=== PATIENT | male | born 1940 | race Caucasian/White ===

== ENCOUNTER → 2017-11-05 | Outpatient (CLI) | payer MEDICARE, BC ==
[~2017-11-05] MED LIST: ACETAMINOPHEN325 M1 PO; ALEVE220 M1 PO; ANCEF 1GM1 GM/50 M1 IV; ASPIR 8181 MG PO; ASPIRIN EC325 M1 PO; ASPIRIN325; ATENOLOL 50 MG50 M1 PO; ATENOLOL 50MG T50 M1 PO; BACTRIM DS TAB1 EACH PO; CEFAZOLIN2 GM/50 ML IV; CELEXA40 MG PO; CHLORTHALIDONE25 MG PO; CHLORTHALIDONE50 MG PO; COLACE100 MG PO; COUMADIN 5 MG TA5 M1 PO; HYDROCHLOROTHIA25 M2 PO; HYDROCODONE-AP1 EAC6 PO; IBUPROFEN200 M1 PO; IRON159 MG PO; IRON325; LISINOPRIL40 MG PO; LOVASTATIN 20 M20 MG PO; METAMUCIL PAC1 UDPK1 PO; MIRALAX255 GM PO; MOM PO; MULTIVITAMINS PO; NAFCILLIN 2 GM A2 G1 IV; NITROGLYCERIN0.4 MG SL; NORCO 5-325 TA1 EACH PO; NORVASC 5 MG TAB5 MG PO; NORVASC5 MG PO; OMEPRAZOLE 20 M20 M1 PO; OMEPRAZOLE 20 M20 MG PO; OXYCODONE HCL 55 MG PO; OXYCODONE HCL5 M1; OXYCONTIN10 M1 PO; OXYCONTIN40 MG PO; OXYIR5 MG PO; PERCOCET 5-3251 EACH PO; PRAVACHOL40 MG PO; PRAVASTATIN SOD40 MG PO; PRILOSEC 20 MG20 MG PO; VENLAFAXINE HC150 M1 PO; VITAMIN B12 PO; VITAMIN C PO; XARELTO10 M1; [UNRECOGNIZED DRUG - OTHER]
== END ==
LOC: M.ULTRA 08:57
DX: I65.23 Occlusion and stenosis of bilateral carotid arteries (principal); I50.32 Chronic diastolic (congestive) heart failure

== ENCOUNTER 2017-12-25 09:01 | Inpatient (IN) | payer MEDICARE, BC ==
[~2017-12-25] VITALS: Ht 177.8 cm; Wt 97.6 kg
[~2017-12-25 09:01] MED LIST changes: -NORCO 5-325 TA1 EACH PO
[2017-12-25 10:35] LABS: ABSOLUTE BASOPHILS 0.1 thou/uL (0.0-0.2); ABSOLUTE EOSINOPHILS 0.2 thou/uL (0.0-0.7); ABSOLUTE LYMPHOCYTES 2.6 thou/uL (0.8-5.3); ABSOLUTE MONOCYTES 0.8 thou/uL (0.0-1.2); ABSOLUTE NEUTROPHILS 6.1 thou/uL (1.6-8.1); BASOPHILS 0.6 %; EOSINOPHILS 2.5 %; HEMATOCRIT 41.9 % (42.0-52.0); HEMOGLOBIN 13.8 gm/dL (14.0-18.0); LYMPHOCYTES 26.5 %; MCH 30.2 pg (26.0-34.0); MCHC 32.9 g/dL (28.0-37.0); MCV 91.8 fL (80.0-100.0); MONOCYTES 8.5 %; NUCLEATED RBCS 0 /100WBC; PLATELET COUNT* 121 thou/uL (150-400); POLYS 61.9 %; RBC 4.56 mil/uL (4.50-6.00); WBC 9.8 thou/uL (4.0-11.0)
[2017-12-25 10:49] LABS: CALCIUM 9.4 mg/dL (8.5-10.1); CREATININE 1.5 mg/dL (0.6-1.3); POTASSIUM 4.7 mmol/L (3.5-5.1)
[2017-12-25 10:50] VITALS: BP 151/63
--- NOTE | 2017-12-25 12:52 | EKG ---
[place] [address] ELECTROCARDIOGRAM REPORT Name: MAGALI BAALD Haley Room: [place] [address] ADM IN .R.#: [id number] Admission: 12/25/17 Attend Phys: Mayco Kumar Discharge: Date of : 44 Report #: [id number] THIS REPORT FOR: //name// [facility] Test Date: 2017-12-25 Test Time: 10:29:15 Pat Name: DEEPTHI BA Department: Room: [place] [address] Gender: M Gravel Truck Driver: : 1940 Requested By: Micheal Kerr Order Number: [id number] Jay MD: Tamir Rangel Measurements Intervals [place] Rate: 56 P: 8 DC: 165 QRS: 3 QRSD: 94 T: 30 QT: 438 QTc: 423 Interpretive Statements Sinus bradycardia Minimal ST elevation, anterior leads Compared to ECG 05/22/2017 10:04:38 No significant changes Electronically Signed On 12-25-2017 12:52:16 CDT by Tamir Rangel [email or web address] <ELECTRONICALLY SIGNED> By: Tamir Rangel MD, [facility] 12/25/17 1252 1029 1029 Tamir Rangel MD, [facility] /EPI
[2017-12-25 15:08] LABS: HEMATOCRIT 37.7 % (42.0-52.0); HEMOGLOBIN 12.3 gm/dL (14.0-18.0); MCH 30.1 pg (26.0-34.0); MCHC 32.8 g/dL (28.0-37.0); MCV 91.6 fL (80.0-100.0); MPV 10.2 fl. (7.2-11.1); RBC 4.11 mil/uL (4.50-6.00); RDW-CV 14.3 % (10.5-14.5); WBC 6.7 thou/uL (4.0-11.0)
[2017-12-25 15:14] LABS: POTASSIUM 4.3 mmol/L (3.5-5.1)
[2017-12-25 15:23] VITALS: BP 142/62
--- NOTE | 2017-12-25 17:55 | NUR ---
PATIENT ADMITTED TO THE FLOOR AT 1523 FROM PACU. AOX4, ROOM AIR. STATES HE HAS CHRONIC BACK PAIN THAT NEVER GOES AWAY, BUT DENIED NEEDS FOR MEDICATIONS. ICE PACKS PRN TO LEFT CAROTID SITE FOR PAIN/SWELLING. PATIENT DENIES FURTHER NEEDS FOR FURTHER INTERVENTION. LEFT CAROTID SITE REMAINS WELL APPROXIMATED WITH DERMABOND IN PLACE AND NO HEMATOMA. PATIENT ABLE TO VOID 150ML PER URINAL. ABLE TO TOLERATE PO FLUIDS WELL. PROVIDED WITH HEART HEALTH DIET FOR DINNER. BLOOD PRESSURES HAVE BEEN LABILE, BUT HTN AT TIMES. PRN CLONIDINE GIVEN, PENDING RESULT. HERE TO SEE PATIENT, UPDATED BY DR GALAVIZ. WENT HOME FOR THE NIGHT. NO OTHER ACUTE CONCERNS NOTED.
[2017-12-25 18:04] VITALS: BP 157/72
[2017-12-25 20:00] VITALS: BP 123/53
[2017-12-25 21:00] VITALS: BP 119/52
[2017-12-25 23:00] VITALS: BP 123/53
[2017-12-26 07:00] VITALS: BP 132/53
--- NOTE | 2017-12-26 07:30 | NUR ---
RECEIVED REPORT. ASSUMED CARE OF PT AT 0730. VSS. CARDIAC MONITORING IN PLACE SB. AM ASSESSMENT AND VITALS COMPLETED CHARTED. PT ALERT AND ORIENTED THIS AM. PT ON RA. IV SALINE LOCKED. PT DENIES ANY COMPLAINTS OF PAIN OR DISCOMFORT THIS AM. PT DENIES ANY NUMBNESS OR TINGLING TO EXTREMITIES. PT ABLE TO MOVE ALL EXTREMITIES EQUALLY THIS AM. PT INFORMED OF PLAN OF CARE. PT COMMUNICATES UNDERSTANDING. CALL LIGHT IS WITHIN REACH. WILL CONTINUE TO MONITOR FOR DURATION OF SHIFT.
[2017-12-26 08:00] VITALS: BP 123/57
[2017-12-26 09:00] VITALS: BP 133/57
--- NOTE | 2017-12-26 10:29 | NUR ---
INTERDISICIPLINARY ROUNDS: PT IS S/P [facility], TO GO HOME LATER TODAY. MET WITH PT. STATES FEELING GOOD. USES [facility] AND LIVES WITH . IS INDEPENDENT WITH ADLS. HASN'T HAD HH. DENIES ANY DC NEEDS.
[2017-12-26 11:48] VITALS: BP 133/57
[2017-12-26] MEDS ORDERED: NORCO 5-325 TA1 EACH PO (11:53)
--- NOTE | 2017-12-26 12:49 | NUR ---
DISCHARGE ORDERS RECEIVED AND PREPARED. IVS AND MONTIORING DISCONTINUED. PT EDUCATED ON DISCHARGE INSTRCTUIONS. ALL QUESTIONS AND CONCNERNS ANSWERED AT THIS TIME. PT GIVEN COPY OF DISCHARGE PAPERWORK, NEW SCRIPT. PT'S PERSONAL BELONGINGS GATHERED AND SENT HOME WITH PT. PT ESCORTED OFF UNIT WITH NURSING STAFF. PT LEFT IN PRIVATE VEHICLE.
--- NOTE | 2018-01-01 08:35 | OP ---
[facility] [address] [place] [address] OPERATIVE REPORT Name: JESENIADEEPTHI R Room: [address] IN M.R.#: [id number] Admission: 12/25/17 Attend Phys: Mayco Kumar Discharge: 12/26/17 Date of : 44 Report #: [id number] THIS REPORT FOR: //name// CC: Micheal Ryan DATE OF SERVICE: 12/25/2017 PREOPERATIVE DIAGNOSIS: Left carotid stenosis. POSTOPERATIVE DIAGNOSIS: Left carotid stenosis. SURGEON: Micheal Kerr DO. LICENSED PESTICIDE APPLICATOR: None. PROCEDURE: 1. Left carotid endarterectomy, bovine pericardial patch angioplasty. 2. Intraoperative arterial duplex. ANESTHESIA: General endotracheal anesthesia. ESTIMATED BLOOD LOSS: 100 mL. SPECIMEN: 1. Plaque. 2. Cervical lymph node. COMPLICATIONS: None. CONDITION: Stable. DISPOSITION: ICU. INDICATIONS FOR THE PROCEDURE AND CONSENT: The patient is a 77-year-old male who is status post right carotid endarterectomy, who also has greater than 70% stenosis of left internal carotid artery. Recommendation for left internal carotid artery endarterectomy was made. Risks and benefits were discussed, infection, bleeding, nerve injury, stroke, heart attack and . The patient wished to proceed, was consented and scheduled. PROCEDURE IN DETAIL: After timeout was performed, the patient was placed in supine position with sterile prep and drape of the anterior neck and chest wall. A semi-transverse incision was made anterior to the sternocleidomastoid after injecting a small amount of lidocaine. [place] [address] OPERATIVE REPORT Name: DEEPTHI BA Room: [address] IN M.R.#: [id number] Admission: 12/25/17 Attend Phys: Mayco Kumar Discharge: 12/26/17 Date of : 44 Report #: [id number] electrocautery and Metzenbaum scissors was used to sharply open the carotid sheath. Common carotid artery was identified and controlled with a Rumel tourniquet using an umbilical tape. The ansa cervicalis was identified and mobilized laterally exposing the carotid bulb. The facial vein, which was very high within the wound was also controlled with 2-0 silk sutures and the facial vein was ligated and divided exposing the internal carotid artery and external carotid artery. The hypoglossal nerve was identified and preserved. The internal carotid artery was then controlled posteriorly with a small vessel loop. The external carotid artery was then controlled with a vessel loop as well as well as the thyroid artery. The patient was then systemically heparinized with 6000 units of heparin and allowed to circulate for 3 minutes. The internal carotid artery was then clamped as was the external and common carotid artery. An 11-blade scalpel and Keita scissors were used to open the artery longitudinally past the endpoint of the plaque. A #14 shunt was advanced into the internal carotid artery, noted to backbleed well and advanced into the common carotid artery and allowed to flow. The plaque was then removed using a plaque elevator and feathered nicely distally. The intima although tapered and feathered nicely appeared somewhat friable and loose with hep saline. I extended the intimal flap distally and made sure that it was smooth and even. As an insurance measure, I tacked it in 2 places with 7-0 Prolene. I then completed the endarterectomy being meticulously cleaning the endarterectomized portion as well as the origin of the external carotid artery. Once satisfied, there was no debris left within the wound. The bovine pericardial patch was selected and sutured in place with 6-0 Prolene in a circumferential fashion. Prior to complete closure, the shunt was removed, re-clamping and controlling the carotid vessels. The endarterectomized portion was copiously irrigated with heparinized saline. The patch was completed and blood flow was restored through the external carotid artery and then the internal carotid artery last. An intraoperative arterial duplex was then performed demonstrating appropriate waveforms for the internal and external common carotid arteries. The velocities were not markedly elevated within the internal carotid artery. B-mode imaging demonstrated no flaps, debris or concerns. I was satisfied with the repair. The heparin was then reversed with protamine and the wound was closed in layers using 2-0 Vicryl, 3-0 Vicryl and 4-0 Monocryl suture and Dermabond dressing was applied. The patient tolerated the procedure well. Lap, needle, instrument counts correct. The patient was transferred to recovery in stable condition, moving all 4 extremities. <ELECTRONICALLY SIGNED> By: Micheal Kerr DO 01/01/18 0835 1427 [id number] Kerr DO /nt
--- NOTE | 2018-01-08 14:10 | PATH ---
[facility] [address] [place] [address] PATHOLOGY RPT PROCEDURE Name: DEEPTHI HOLLINGSWORTH Room: [address] IN M.R.#: [id number] Admission: 12/25/17 Date of : 44 Discharge: 12/26/17 Report #: [id number] Path Case #: [id number] [facility] Accession Number: [id number] . 01 Material submitted: . PART A: PLAQUE LEFT CAROTID PART B: LEFT SIDE NECK LYMPH NODE . 01 Clinical history: . Left carotid stenosis . 02 Diagnosis: A. Plaque, "plaque left carotid": - Atherosclerotic plaque. . B. Lymph node, "left side neck lymph node": - Fragments of lymph node present. See comment. [facility] . 02 Comment: B. The lymph node has a partially diffuse architecture. It will be evaluated by a hematopathologist and an additional report will follow. . (SHA:karen; 12/30/17) . 02 Addendum: . An addendum is issued to relay immunohistochemical stain results and final diagnosis. . Examination of the left side neck lymph node shows effacement of the normal timoteo architecture by proliferation of small neoplastic lymphoid cells with fairly round nuclear borders, clump chromatin, scant cytoplasm and few nucleoli. To further characterize the neoplastic lymphoid cells, immunohistochemical stains are performed with the appropriate controls: . (Block B1 ) . CD45 - highlights the lymphoid cells. . CD20 - positive . CD5 - positive for co-expression . CD23 - positive . BCL2 - positive . CD10 [place] [address] PATHOLOGY RPT PROCEDURE Name: DEEPTHI HOLLINGSWORTH Room: [address] IN [facility].#: [id number] Admission: 12/25/17 Date of : 44 Discharge: 12/26/17 Report #: [id number] Path Case #: [id number] . BCL6 - negative . CD3 - highlights T lymphoid cells . CD30 - highlights few scattered immunoblasts . CD15 - highlights neutrophils within vessels . BCL1 - negative . Ki-67 - approximately 1 to 5% proliferation fraction . Conception and lambda HERNÁN - Conception predominant . Based on the morphology, and immunohistochemical staining pattern, these findings are consistent with involvement by chronic lymphocytic leukemia/small lymphocytic lymphoma (CLL/SLL). . These findings were discussed with Dr. Micheal Kerr on 01/06/18 at 3:35 pm. . Co-review: Dr. Leah Odom and Dr. New Bell. . (JMQ:[facility] 01/03/2018) . . The case was prepared and proofread by Dr. Harmony Arroyo and electronically released by Dr. Vicki Ojeda. QMS/01/08/2018 Addendum Electronically Signed by Rosa Ojeda MD, Pathologist . 02 Electronically signed: . New Bell MD, Pathologist NPI- [id number] . 01 Gross description: . A. Received in formalin "Deepthi Hollingsworth, plaque left carotid" is a segment of atherosclerotic plaque measuring 2.4 cm in length with diameter ranging from 0.3 cm at bifurcation to 1.0 cm. There is 60% stenosis of lumen. There are moderate to marked calcific changes. Student Success Coach sections are submitted A1 following decalcification. . B. Received in formalin "Deepthi Hollingsworth, left side neck lymph node" is a 2.1 x 0.9 x 0.8 cm flores-pink lymph node candidate which is serially sectioned and entirely submitted in B1. (JESSICA; 12/26/2017) JBR/JBR . 02 Pathologist provided ICD-10: [place] [address] PATHOLOGY RPT PROCEDURE Name: DEEPTHI HOLLINGSOWRTH Room: [address] DIS IN M.R.#: [id number] Admission: 12/25/17 Date of : 44 Discharge: 12/26/17 Report #: [id number] Path Case #: [id number] I65.22, C91.10 . 02 CPT . 897017, [id number], [id number], [id number], [id number], [id number], [id number], 200529 Performed at: [address], [place], [place] [id number] MD Brando Schwab MD Phone: [phone] Performed at: 02 [facility] [address], [place], [place] [id number] MD Zane Willard MD Phone: [phone]
--- NOTE | 2018-02-12 11:39 | NUR ---
Attempted to make a follow up phone call with patient. No answer, message left with return phone number if patient had questions or concerns.
== END 2017-12-26 12:51 | disposition home or self-care (01) | DRG 39 ==
LOC: M.PRE 09:01 → M.TBA 10:07 → M.ICU 10:07
PROVIDERS: Surgery; ADMIT Internal Medicine
PROC: 03UN0KZ Supplement Left External Carotid Artery with Nonautologous Tissue Substitute, Open Approach (ICD-10-PCS; principal; 2017-12-25)
PROC: 03HY32Z Insertion of Monitoring Device into Upper Artery, Percutaneous Approach (ICD-10-PCS; principal; 2017-12-25)
PROC: 03CJ0ZZ Extirpation of Matter from Left Common Carotid Artery, Open Approach (ICD-10-PCS; principal; 2017-12-25)
PROC: 03UJ0KZ Supplement Left Common Carotid Artery with Nonautologous Tissue Substitute, Open Approach (ICD-10-PCS; principal; 2017-12-25)
PROC: 4A133B1 Monitoring of Arterial Pressure, Peripheral, Percutaneous Approach (ICD-10-PCS; principal; 2017-12-25)
PROC: 4A133J1 Monitoring of Arterial Pulse, Peripheral, Percutaneous Approach (ICD-10-PCS; principal; 2017-12-25)
PROC: 03CN0ZZ Extirpation of Matter from Left External Carotid Artery, Open Approach (ICD-10-PCS; principal; 2017-12-25)
DX: I65.23 Occlusion and stenosis of bilateral carotid arteries (principal); E78.5 Hyperlipidemia, unspecified; I12.9 Hypertensive chronic kidney disease with stage 1 through stage 4 chronic kidney disease, or unspecified chronic kidney disease; N18.3 Chronic kidney disease, stage 3 (moderate); F32.9 Major depressive disorder, single episode, unspecified; Z79.82 Long term (current) use of aspirin; Z98.42 Cataract extraction status, left eye; Z98.41 Cataract extraction status, right eye; Z90.49 Acquired absence of other specified parts of digestive tract

== ENCOUNTER → 2018-08-05 | Outpatient (CLI) | payer MEDICARE, BC ==
[~2018-08-05] MED LIST changes: +ABILIFY 5 MG TAB5 M1 PO; +NORCO 5-325 TA1 EACH PO
--- NOTE | ~2018-08-05 | PAINCON ---
[address] [address] PAIN MANAGEMENT CONSULTATION Name: JESENIADEEPTHI R [facility] [id number] Admission: 08/05/18 Attend Phys: Heriberto Grijalva MD Discharge: Date of : 44 Report #: [id number] THIS REPORT FOR: //name// CC: Heriberto Corley DATE OF SERVICE: 08/05/2018 CHIEF COMPLAINT: Low back pain. FOLLOWUP HISTORY: The patient is a 78-year-old gentleman who has been referred to the pain clinic because of pain in his low back area and for an epidural steroid injection. The patient is a 78-year-old gentleman with a history of spinal stenosis. He has been experiencing pain in his low back area for years. Notes that the pain continues to be constant, shooting, throbbing, sharp in the low back area. Pain is improved with epidural steroid injections. He has had them about 3 years ago. He has returned to the pain clinic with a desire to undergone another injection. He has a history of back surgery. Rates his pain as a 10/10. Notes that the pain is worse with walking, standing, longer he stands worse his pain becomes. Notes that the pain is problematic when he is brushing his teeth. Notes the pain limits his ability to take a shower. Has had some problem with his right knee. Had a replacement. Had some problems with infections in the past. States that he had about 5 surgeries on the right knee. As a result of that scenario, he has a frozen knee. Notes that if he walks leaning on cart decreases his pain and discomfort. ALLERGIES: No known drug allergies. MEDICATIONS: Abilify 5 mg b.i.d., Tenormin 50 mg, Mevacor 20 mg, omeprazole 20 mg, venlafaxine 150 mg. PAST MEDICAL HISTORY: Hypertension, hyperlipidemia, emphysema, depression, bilateral cataracts, back pain, bilateral shoulder pain, jamie in the right knee after Staph infection, skin cancer removal from the face, right carotid endarterectomy in 2017. PAST SURGICAL HISTORY: Cataract surgery bilateral, cholecystectomy, appendectomy, partial colon resection, back surgeries x 2, rods in the knee, approximately 5 surgeries on the right knee, skin cancer removal, right carotid endarterectomy. SOCIAL HISTORY: He is retired. REVIEW OF SYSTEMS: Generally good health, fatigue, weakness, headaches, cataract surgeries, shortness of breath, chronic findings of cough, shortness of breath, asthma, wheezing, frequent urination, awakens at night to urinate, [place] [address] PAIN MANAGEMENT CONSULTATION Name: DEEPTHI BA Room: [facility]#: [id number] Admission: 08/05/18 Attend Phys: Heriberto Grijalva MD Discharge: Date of : 44 Report #: [id number] pain, joint stiffness and swelling, muscle joint weakness, muscle pain and cramping, back pain, difficulty walking, frequent recurring headaches, depression. LABORATORY DATA: No new laboratory values are available at the time of our interview. MRI of the lumbar spine obtained 01/18/2015 showed a 12 mm left-sided intraspinal synovial cyst at the L4-L5 level arising from the facet joint causing left lateral recess narrowing. There is classified as severe. Central canal is narrowed to 6.5 mm. PAIN CLINIC ASSESSMENT AND PQRS: 1. The patient has some osteoarthritic changes involving his right knee. Has some changes in his shoulders. 2. History of rheumatoid arthritis. The patient has not been treated for rheumatoid arthritis. 3. Height 5 feet 10 inches, weight 229 pounds, BMI is 32.7. 4. Blood pressure 150/70, heart rate 92, respiratory rate 16, room air saturation 92%, temperature 97.9. 5. Pain intensity 10/10. 6. Fall history: The patient has not fallen in the last 3 months. 7. Blood thinner. The patient is not on a blood thinning medication. 8. Hypertension. The patient is being treated for hypertension. 9. Opioid therapy greater than 6 weeks. The patient is not receiving opioid medications. 10. Risk assessment tool, low for opioid use. 11. Functional assessment tool. 12. Recreational drug use. The patient denies use of recreational drugs. 13. Tobacco: The patient stopped smoking, has a 55-year smoking history. 14. Alcohol. The patient rarely drinks alcoholic beverages. PHYSICAL EXAMINATION: GENERAL: The patient is a well-developed, well-nourished white male. Appears his stated age, slightly obese. His affect is appropriate. Speech is fluent. HEENT: Normocephalic, atraumatic. Extraocular eye muscles intact. Sclerae nonicteric. Mucous membranes are moist. NECK: Without adenopathy or JVD. HEART: Regular rate. ABDOMEN: Nontender. Bowel sounds present. EXTREMITIES: Upper extremity muscle strength is judged to be 5-/5 for the major muscle groups in the upper extremity. Lower extremity, the patient has muscle strength at 4+/5 for the major muscle groups in the lower extremity. As physical findings consistent with spinal stenosis. The patient is having pain and discomfort in the L5-S1 dermatomal distribution at this juncture. IMPRESSION: 1. Spinal stenosis clinical findings. [address] [place] [address] PAIN MANAGEMENT CONSULTATION Name: DEEPTHI BA Haley Room: [facility]#: [id number] Admission: 08/05/18 Attend Phys: Heriberto Grijalva MD Discharge: Date of : 44 Report #: [id number] 2. Hypertension. 3. Hyperlipidemia. 4. Emphysema. 5. Depression. 6. Bilateral cataracts. 7. Back pain. 8. Bilateral shoulder pain. 9. Jamie in the right knee after Staph infection. 10. Skin cancer removal from the face. 11. Right carotid endarterectomy in 2017. RECOMMENDATIONS: We discussed treatment options with the patient. Risks and benefits of an epidural steroid injection were discussed. A model was used to indicate the area of probable pathology. The risks of the procedure, which could include but are not limited to infection, worsening of pain, no improvement in pain were discussed and the patient elects to proceed. PROCEDURE NOTE: The patient was taken to the procedure area. He was assisted in getting on the examination table. His back was sterilely prepped with a Betadine solution. A 0.25% bupivacaine was infiltrated at the L5 right paramedian approach. This area had been infiltrated with 0.25% bupivacaine. A 17-gauge Tuohy with loss of resistance technique was successful without evidence of CSF or heme. A total of 80 mg of Depo-Medrol, 40 mg of triamcinolone and 2 mL of 0.25% bupivacaine was injected. Total of 20 seconds' fluoroscopy time was used. The patient remained in the pain clinic for an appropriate amount of time. He will follow up in the future as needed. We would like to thank you for letting us participate in his care. We hope he continues to improve. By: [id number]. Humberto Grijalva MD /PMT
== END | disposition home or self-care (01) ==
LOC: M.PC 12:43
DX: M54.16 Radiculopathy, lumbar region (principal); M48.061 Spinal stenosis, lumbar region without neurogenic claudication; G89.29 Other chronic pain; I10 Essential (primary) hypertension; E78.5 Hyperlipidemia, unspecified; J43.9 Emphysema, unspecified; F32.9 Major depressive disorder, single episode, unspecified; Z98.41 Cataract extraction status, right eye; Z98.42 Cataract extraction status, left eye; Z98.890 Other specified postprocedural states; Z85.828 Personal history of other malignant neoplasm of skin; Z79.01 Long term (current) use of anticoagulants; Z79.899 Other long term (current) drug therapy; Z90.49 Acquired absence of other specified parts of digestive tract; Z98.0 Intestinal bypass and anastomosis status

== ENCOUNTER → 2018-09-02 | Outpatient (CLI) | payer MEDICARE, BC ==
--- NOTE | ~2018-09-02 | PAINCON ---
[address] [address] PAIN MANAGEMENT CONSULTATION Name: JESENIADEEPTHI R Room: [facility]#: [id number] Admission: 09/02/18 Attend Phys: Heriberto Grijalva MD Discharge: Date of : 44 Report #: [id number] THIS REPORT FOR: //name// CC: Heriberto Corley DATE OF SERVICE: 09/02/2018 CHIEF COMPLAINT: Low back pain. HISTORY OF PRESENT ILLNESS: The patient is a 78-year-old gentleman, who has been referred to the Pain Clinic because of chronic pain. He has undergone epidural steroid injections. He has a history of spinal stenosis. He has been experiencing increasing back pain over the last few years. He complains of pain, which is shooting, throbbing, sharp in the low back area. Epidural steroid injections have been used in the past and improved his condition. He has returned today with the desire to undergo another epidural steroid injection. He is experiencing low back pain. He notes that the pain is worse when he is standing, not so much so when he is walking. He rates it as a 5-6/10. He has been using ibuprofen. He has about 20% pain improvement at this juncture. He still is unable to engage in activities of daily living without significant discomfort. ALLERGIES: No known drug allergies. CURRENT MEDICATIONS: Abilify 5 mg b.i.d., Tenormin 50 mg, Mevacor 20 mg, omeprazole 20 mg, venlafaxine 150 mg. PAIN CLINIC ASSESSMENT AND PQRS: 1. The patient has had a knee replacement and developed some infections and it is fused. 2. The patient is not being treated for rheumatoid arthritis. He has some arthritic changes in his shoulders as well. 3. Height 5 feet 10 inches, weight 229 pounds, BMI is 32.9. 4. Vital signs: Blood pressure 135/68, heart rate 67, respiratory rate 16, room air saturation 97%, temperature is 97.7. 5. Pain intensity: 5-6/10. 6. Fall history: The patient has not fallen in the last 3 months. 7. Blood thinner: The patient is not on a blood thinning medication. 8. Hypertension: The patient is being treated for hypertension. 9. Opioids greater than 6 weeks: The patient is not receiving chronic opioid therapy. 10. Risk assessment tool: Low for opioid use. 11. Functional assessment tool. 12. Recreational drug use: The patient denies use of recreational drugs except tobacco. The patient has a 55-year smoking history, [place] [address] PAIN MANAGEMENT CONSULTATION Name: DEEPTHI BA Room: [facility]#: [id number] Admission: 09/02/18 Attend Phys: Heriberto Grijalva MD Discharge: Date of : 44 Report #: [id number] 13. Alcohol: The patient rarely drinks alcoholic beverages. PHYSICAL EXAMINATION: GENERAL: The patient is a well-developed, well-nourished, white male. He appears his stated age. He is alert and oriented x 3. His affect is appropriate. Speech is fluent. HEENT: Normocephalic, atraumatic. Extraocular eye muscles intact. Sclerae nonicteric. The patient is slightly obese. NECK: Without adenopathy or JVD. HEART: Regular rate. ABDOMEN: Nontender. Bowel sounds present. MUSCULOSKELETAL: Upper extremity muscle strength is judged to be 5-/5 for the major muscle groups in the upper extremity. The patient without significant scoliosis, kyphosis or lordosis. Muscle strength is 4+/5 for the major muscle groups in the lower extremity. The patient has findings consistent with spinal stenosis. He is having pain and discomfort in the L4-L5 dermatomal distribution. IMPRESSION: 1. Spinal stenosis with clinical findings. 2. Hypertension. 3. Hyperlipidemia. 4. Emphysema. 5. Depression. 6. Bilateral cataracts. 7. Back pain. 8. Bilateral shoulder pain. 9. Jamie in the right knee after staph infection with inability to bend his knee. 10. Skin cancer removal from the face. 11. Right carotid endarterectomy in 2017. RECOMMENDATIONS: We discussed treatment options with the patient. Risks and benefits of an epidural steroid injection were discussed. Possible complications of the procedure, which could include but are not limited to infection, worsening pain, no improvement in pain, trauma, muscle weakness, and bleeding were discussed and the patient elects to proceed. PROCEDURE NOTE: The patient was taken to the procedure area. He was assisted in getting on the examination table. His back was sterilely prepped with betadine solution, this was at the left L5-S1 dermatomal distribution. A fluoroscopy view using anterior and posterior as well as lateral viewing were implemented. The patient's back was infiltrated at the L4 area on the right using midline approach. A 0.25% bupivacaine was infiltrated with a 25-gauge needle, this was used to numb the area. A 17-gauge Tuohy with loss of resistance technique was then used to gain access to the epidural space. There was no CSF, heme or paresthesia. Total of 80 mg Depo-Medrol, 40 mg [place] [address] [place] [address] PAIN MANAGEMENT CONSULTATION Name: DEEPTHI BA Room: [facility]#: [id number] Admission: 09/02/18 Attend Phys: Heriberto Grijalva MD Discharge: Date of : 44 Report #: [id number] triamcinolone, and 2 mL of 0.25% bupivacaine was injected. The patient tolerated the procedure well. There were no complications. He remained in the Pain Clinic for an appropriate amount of time. A total of 10 seconds fluoroscopy time was used. The patient's pain was 5/10 at the time of discharge. He will return in the future as needed. We would like to thank you for letting us participate in his care. We hope he continues to improve. By: [id number]. Humberto Grijalva MD /nt
== END | disposition home or self-care (01) ==
LOC: M.PC 04:46
DX: M54.16 Radiculopathy, lumbar region (principal); M48.061 Spinal stenosis, lumbar region without neurogenic claudication; G89.29 Other chronic pain; I10 Essential (primary) hypertension; E78.5 Hyperlipidemia, unspecified; J43.9 Emphysema, unspecified; F32.9 Major depressive disorder, single episode, unspecified; Z98.41 Cataract extraction status, right eye; Z98.42 Cataract extraction status, left eye; M25.511 Pain in right shoulder; M25.512 Pain in left shoulder; Z85.828 Personal history of other malignant neoplasm of skin; Z98.890 Other specified postprocedural states; Z79.899 Other long term (current) drug therapy

== ENCOUNTER → 2018-10-07 | Outpatient (CLI) | payer MEDICARE, BC ==
[~2018-10-07] MED LIST changes: +IBUPROFEN 600600 M1 PO
--- NOTE | ~2018-10-07 | PAINCON ---
[address] [address] PAIN MANAGEMENT CONSULTATION Name: BADEEPTHI Haley Room: [facility] ANGE PaulinoMargy#: [id number] Admission: 10/07/18 Attend Phys: Heriberto Grijalva MD Discharge: Date of : 44 Report #: [id number] THIS REPORT FOR: //name// CC: Heriberto Corley DATE OF SERVICE: 10/07/2018 CHIEF COMPLAINT: Low back pain going down into the left side and leg. HISTORY: The patient is a 78-year-old gentleman who has been followed in the pain clinic because of chronic pain in his low back. He is having pain across his low back, left side greater than right. He has had epidural steroid injections in the past and gleaned significant benefit from these. He has been able to be more active as a result of the improved pain. He rates his pain as a 5/10 today. He feels that he may have overdid it. He has returned today with the hopes undergone epidural steroid injection to help decrease pain in his lower back and pain that he has been experiencing down in the left side. He has had no complications from the last injection. He has returned today for an injection. Feels that the ibuprofen p.r.n. can be beneficial as well. ALLERGIES: No known drug allergies. CURRENT MEDICATIONS: Abilify 5 mg b.i.d., Tenormin 50 mg, Mevacor 20 mg, omeprazole 20 mg, venlafaxine 150 mg. PAIN CLINIC ASSESSMENT/PQRS: 1. The patient is not being treated for rheumatoid arthritis. 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 Height 5 feet 10 inches, weight 227 pounds, BMI is 32. 2. VITAL SIGNS: Blood pressure 127/61, heart rate 92, respiratory rate 16, room air saturation 92%, temperature 98.2. 3. Pain intensity 5/10. 4. Fall history: The patient has not fallen in the last 3 months. 5. Blood thinner. The patient is not on a blood thinning medication. 6. Hypertension. The patient is being treated for hypertension. 7. Opioid greater than 6 weeks. The patient does receive medication through the pain clinic. 8. Risk assessment tool, low for opioids. 9. Functional assessment tool. 10. Recreational drug use. The patient denies use of recreational drugs. 11. Tobacco: The patient seldom drinks alcoholic beverages. PHYSICAL EXAMINATION: GENERAL: The patient is a well-developed, well-nourished white male. Appears his stated age. He is alert and oriented x 3. [place] [address] PAIN MANAGEMENT CONSULTATION Name: DEEPTHI BA [id number] Admission: 10/07/18 Attend Phys: Heriberto Grijalva MD Discharge: Date of : 44 Report #: [id number] is fluent. HEAD, EYES, EARS, NOSE, AND THROAT: Normocephalic, atraumatic. Extraocular eye muscles intact. Sclerae nonicteric. Mucous membranes are moist. The patient does have some lump on the right side of his cheek and the area of the salivary gland. He states he is going to go and have this evaluated by biopsy. HEART: Regular rate. ABDOMEN: Nontender. Bowel sounds present. MUSCULOSKELETAL: Without significant scoliosis, kyphosis or lordosis. Upper extremity muscle strength is judged to be 5-/5 for the major muscle groups. The patient has muscle strength 4+/5 for the major muscle groups in the lower extremity. He walks with an antalgic gait. His leg is fused at the knee. Findings consistent with spinal stenosis with discomfort in the L4-L5 dermatomal distribution. IMPRESSION: 1. Spinal stenosis with clinical findings. 2. Hypertension. 3. Hyperlipidemia. 4. Emphysema. 5. Depression. 6. Bilateral cataracts. 7. Back pain. 8. Bilateral shoulder pain. 9. Jamie in the right knee after a staph infection with inability to bend his knee. 10. Skin removal from the face. 11. Right carotid endarterectomy in 2017. 12. New nodule on the right side of the jaw. RECOMMENDATIONS: We discussed treatment options with the patient. Risks and benefits of an epidural steroid injection were discussed. They include but are not limited to infection, worsening of pain, no improvement in pain, trauma, spinal headache and the patient elects to proceed. PROCEDURE NOTE: The patient was taken to the procedure area. He was assisted in getting on the examination table. He had placed on his abdomen to bolster and improve positioning. His back was sterilely prepped with a Betadine solution at the L4-L5 interspace. A 17-gauge Tuohy with loss of resistance technique was used to gain access to the epidural space. A midline approach at the L4-L5 area was injected with 0.25% bupivacaine using a 25-gauge needle. A 17-gauge Tuohy with loss of resistance technique was then used to gain access to the epidural space. There was no CSF, heme or paresthesia. Total of 80 mg of Depo-Medrol, 40 mg of triamcinolone and 2 mL of 0.25% bupivacaine was injected. The patient tolerated the procedure well. He remained in the pain clinic for an appropriate amount of time. He will follow up in the near future with his primary in regard to the lump on the right side of his jaw. [place] [address] PAIN MANAGEMENT CONSULTATION Name: BADEEPTIH R Room: [facility]#: [id number] Admission: 10/07/18 Attend Phys: Heriberto Grijalva MD Discharge: Date of : 44 Report #: [id number] going to get needle biopsy. We would like to thank you for letting us to participate in his care. We hope he continues to improve. By: [id number]. Humberto Grijalva MD /MONICA
== END | disposition home or self-care (01) ==
LOC: M.PC 04:52
DX: M48.061 Spinal stenosis, lumbar region without neurogenic claudication (principal); G89.29 Other chronic pain; I10 Essential (primary) hypertension; E78.5 Hyperlipidemia, unspecified; J43.9 Emphysema, unspecified; F32.9 Major depressive disorder, single episode, unspecified; Z98.890 Other specified postprocedural states; Z98.41 Cataract extraction status, right eye; Z98.42 Cataract extraction status, left eye; Z79.899 Other long term (current) drug therapy